=== PATIENT | female | born 2005 | race Two or more races ===

== ENCOUNTER 2025-10-01 11:03 | Emergency (ER) | payer OTHER ==
[~2025-10-01] VITALS: Ht 160 cm; Wt 68.2 kg
--- NOTE | 2025-10-01 11:31 | ECG ---
[facility] Test Date: 2025-10-01 Test Time: 11:17:47 Pat Name: KATHRYN GLASER Department: [facility] ED Patient ID: [id number] Room: Gender: F Increment Manager: anna : 2005 Requested By: EMERGENCY EMERGENCY Order Number: [id number] Reading MD: Arturo Jade Measurements Intervals [place] Rate: 111 P: 72 VA: 138 QRS: 73 QRSD: 90 T: 59 QT: 323 QTc: 439 Interpretive Statements Sinus tachycardia Consider right atrial enlargement Baseline wander in lead(s) V1,V2,V3 Electronically Signed On 10-05-2025 8:35:40 PST by Arturo Jade Please click the below link to view image of tracing.
[2025-10-01 11:54] VITALS: PULSE 95; RESP 15; O2SAT 98
[2025-10-01 12:14] LABS: Hematocrit 39.1 % (36.0-46.0); Hemoglobin 13.1 g/dL (12.2-16.2); Mean Corpuscular Hemoglobin 28.8 pg (28.0-32.0); Mean Corpuscular Volume 86.1 fL (80.0-100.0); Nucleated Red Blood Cells % 0.0 %
[2025-10-01 12:17] LABS: Chloride 106 mmol/L (98-107); Potassium 4.1 mmol/L (3.5-5.1); Sodium 143 mmol/L (136-145)
[2025-10-01 12:19] LABS: Anion Gap 12 (5-15); Calcium 9.9 mg/dL (8.7-10.4); Carbon Dioxide 25 mmol/L (20-31)
--- NOTE | 2025-10-01 12:22 | ED.PDOC ---
History of Present Illness HPI Comments 19-year-old female presents to the ER with the chief complaint of back pain. Patient reports that she had a herniated and bulging disc and had spine injection procedure done to try to stop the pain at [place] on Thursday of 09/29/2025. Patient states on having had a sudden onset of mid back pain which radiated down the left leg causing numbness and tingling yesterday. Patient notes on calling [place] with her symptoms and was informed to go to the ER. The pain assumed this morning which prompted the patient to take Tylenol for the pain and to go to the ER. Denies any other symptoms at this time. Denies chills, fever, N/V/D, SOB, CP. No other associated symptoms, modifiers, recent injuries or sick contacts present at this time. Chief Complaint: Back Pain Time Seen by MD: 12:15 Reviewed Notes: Nurses Notes, Medications, Allergies Allergies: Coded Allergies: Latex (Verified Allergy, Unknown, 10/01/25) Information Source: Patient Mode of Arrival: Ambulatory Severity: Moderate Timing: Hours Duration: Since onset, Hours Prehospital treatment: None Past Medical History PAST MEDICAL HISTORY: Denies Surgical History (Other): Spine injection procedure done on 09/29/2025. HOME MAKER History: No Pertinent HOME MAKER History Family History Family History: Reviewed,noncontributory to illness, Unknown Social History Smoker: Non-Smoker Alcohol: Denies ETOH Use Drugs: Denies Drug Use Lives In: Home Constitutional: denies: chills, diaphoresis, fatigue, fever, malaise, sweats, weakness, others EENTM: denies: blurred vision, double vision, ear bleeding, ear discharge, ear drainage, ear pain, ear ringing, eye pain, eye redness, hearing loss, mouth pain, mouth swelling, nasal discharge, nose bleeding, nose congestion, nose pain, photophobia, tearing, throat pain, throat swelling, voice changes, others Respiratory: denies: cough, hemoptysis, orthopnea, SOB at rest, shortness of breath, SOB with excertion, stridor, wheezing, others Cardiovascular: denies: chest pain, dizzy spells, diaphoresis, Dyspnea on exertion, edema, irregular heart beat, left arm pain, lightheadedness, palpita tions, PND, syncope, others Gastrointestinal: denies: abdomen distended, abdominal pain, blood streaked roma wels, constipated, diarrhea, dysphagia, difficulty swallowing, hematemesis, melena, nausea, poor appetite, poor fluid intake, rectal bleeding, rectal pain, vomiting, others Genitourinary: denies: abnormal vagina bleeding, burning, dyspareunia, dysuria, flank pain, frequency, hematuria, incontinence, pain, , vagina discharge, urgency, others Neurological: denies: dizziness, fainting, headache, left sided numbness, left sided weakness, numbness, paresthesia, pre-existing deficit, right sided numbness, right sided weakness, seizure, speech problems, tingling, tremors, weakness, others Musculoskeletal: reports: back pain (Thoracic region of the back has pain which radiates down to the left lower extremity causing numbness and tingling.); denies: gout, joint pain, joint swelling, muscle pain, muscle stiffness, neck pain, others Integumetry: denies: bruises, change in color, change in hair/nails, dryness, laceration, lesions, lumps, rash, wounds, others Allergic/Immunocompromised: denies: Difficulty Healing, Frequent Infections, Hives, Itching, others Hematologic/Lymphatic: denies: anemia, blood clots, easy bleeding, easy bruising, swollen glands, others Endocrine: denies: excessive hunger, excessive sweating, excessive thirst, excessive urination, flushing, intolerance to cold, intolerance to heat, unexplained weight gain, unexplained weight loss, others Psychiatric: denies: anxiety, bipolar disorder, depression, hopeless, panic disorder, schizophrenia, sleepless, suicidal, others All Other Systems: Reviewed and Negative Physical Exam Exam Comments Thoracic back pain General Appearance: No Apparent Distress, Normal HEENT: Normal ENT Inspection, Pharynx Normal, TMs Normal Neck: Full Range of Motion, Non-Tender, Normal, Normal Inspection Respiratory: Chest Non-Tender, Lungs Clear, No Accessory Muscle Use, No Respiratory Distress, Normal Breath Sounds Cardiovascular: No Edema, No JVD, No Murmur, No Gallop, Normal Peripheral Pulses, Regular Rate/Rhythm Breast Exam: Deferred Gastrointestinal: No Organomegaly, Non Tender, No Pulsatile Mass, Normal Bowel Sounds, Soft Genitalia: Deferred Pelvic: Deferred Rectal: Deferred Extremities: No calf tenderness, Normal capillary refill, Normal inspection, Normal range of motion, Non-tender, No pedal edema Musculoskeletal : Apperance: Normal Neurologic: Alert, director of recruitment and admissions II-XII nml as Tested, No Motor Deficits, Normal Affect, Normal Mood, No Sensory Deficits Cerebellar Function: Normal Reflexes: Normal Skin: Dry, Normal Color, Warm Lymphatic: No Adenopathy Was a procedure done? Was a procedure done?: No EKG EKG : Pulse Rate (adult): 111 [place]: Normal Cardiac Rhythm: ST Block: None Hypertrophy: None ST: Normal Differential Dx Considerations may include: Spinal epidural abscess, lumbar puncture headache, paresthesia, cauda equina X-Ray, Labs, Meds, VS Vital Signs Date Time Temp Pulse Resp B/P (MAP) Pulse Ox O2 Delivery O2 Flow Rate FiO2 10/01/25 14:05 95 16 118/81 (93) 98 10/01/25 13:42 98.4 10/01/25 12:42 98.3 10/01/25 12:21 111 10/01/25 12:00 98 10/01/25 11:54 98.3 95 15 132/102 (112) 98 98.3 10/01/25 11:54 95 15 98 Room Air* 0 21 10/01/25 11:17 111 10/01/25 11:12 98.3 111 18 153/102 99 98.3 Lab Test 10/01/25 11:55 Range/Units White Blood Count 6.6 4.4-10.8 10^3/uL Red Blood Count 4.54 4.0-5.20 10^6/uL Hemoglobin 13.1 12.2-16.2 g/dL Hematocrit 39.1 36.0-46.0 % Mean Corpuscular Volume 86.1 80.0-100.0 fL Mean Corpuscular Hemoglobin 28.8 28.0-32.0 pg Mean Corpuscular Hemoglobin Concent 33.5 32.0-36.0 g/dL Red Cell Distribution Width 13.5 11.8-14.3 % Platelet Count 261 140-450 10^3/uL Mean Platelet Volume 8.7 6.9-10.8 fL Neutrophils (%) (Auto) 67.8 37.0-80.0 % Lymphocytes (%) (Auto) 24.9 10.0-50.0 % Monocytes (%) (Auto) 6.1 0.0-12.0 % Eosinophils (%) (Auto) 0.4 0.0-7.0 % Basophils (%) (Auto) 0.8 0.0-2.0 % Neutrophils # (Auto) 4.5 1.6-8.6 10 ^3/uL Lymphocytes # (Auto) 1.7 0.4-5.4 10 ^3/uL Monocytes # (Auto) 0.4 0-1.3 10 ^3/uL Eosinophils # (Auto) 0 0-0.8 10 ^3/uL Basophils # (Auto) 0.1 0-0.2 10 ^3/uL Nucleated Red Blood Cells 0.0 % Sodium Level 143 136-145 mmol/L Potassium Level 4.1 3.5-5.1 mmol/L Chloride Level 106 98-107 mmol/L Carbon Dioxide Level 25 20-31 mmol/L Anion Gap 12 5-15 Blood Urea Nitrogen 8 L 9-23 mg/dL Creatinine 0.69 0.550-1.02 mg/dL Glomerular Filtration Rate Calc 127 >90 mL/min BUN/Creatinine Ratio 11.6 10.0-20.0 Serum Glucose 85 74-106 mg/dL Calcium Level 9.9 8.7-10.4 mg/dL Current Medications Medications (Trade) Dose Ordered Sig/Rich Route Start Time Stop Time Status Last Admin Sodium Chloride 1,000 ml @ 1,000 mls/hr Q1H ONCE IV 10/01/25 11:45 10/01/25 12:44 DC 10/01/25 12:40 Metoclopramide HCl (Reglan Injection) 10 mg ONCE ONCE IV 10/01/25 11:45 10/01/25 11:46 DC 10/01/25 12:41 Acetaminophen (Tylenol Tablet) 650 mg ONCE ONCE PO 10/01/25 11:45 10/01/25 11:46 DC 10/01/25 12:42 Time of 1ST Reevaluation: 12:45 Reevaluation 1ST: Unchanged Patient Education/Counseling: Diagnosis, Treatment, Prognosis Family Education/Counseling: No Family Present SEPSIS Sepsis Screen Date sepsis recognized/suspect: Oct 01, 2025 Time Sepsis recognized/suspect: 1110 Recent Procedure: No On Antibiotic Therapy: No Respiratory Rate >20: No Heart Rate >90: Yes Temp<36 C (96.8 F) or >38.3 C: No SBP <90 or MAP <65 mmHG: No New Acute Mental Status Change: No Is the patient on CPAP, BIPAP,: No Physician Orders Urinalysis (10/01/25 11:40) Test, Urine (10/01/25 11:40) Vital Signs Date Time Temp Pulse Resp B/P (MAP) Pulse Ox O2 Delivery O2 Flow Rate FiO2 10/01/25 14:05 95 16 118/81 (93) 98 10/01/25 13:42 98.4 10/01/25 12:42 98.3 10/01/25 12:21 111 10/01/25 12:00 98 10/01/25 11:54 98.3 95 15 132/102 (112) 98 98.3 10/01/25 11:54 95 15 98 Room Air* 0 21 10/01/25 11:17 111 10/01/25 11:12 98.3 111 18 153/102 99 98.3 Laboratory Tests Test 10/01/25 11:55 White Blood Count 6.6 10^3/uL (4.4-10.8) Medications Medications Dose Ordered Sig/Rich Route Start Time Stop Time Status Last Admin Dose Admin Acetaminophen 650 mg ONCE ONCE PO 10/01/25 11:45 10/01/25 11:46 DC 10/01/25 12:42 Metoclopramide HCl 10 mg ONCE ONCE IV 10/01/25 11:45 10/01/25 11:46 DC 10/01/25 12:41 Sodium Chloride 1,000 ml @ 1,000 mls/hr Q1H ONCE IV 10/01/25 11:45 10/01/25 12:44 DC 10/01/25 12:40 Departure 1 Departure Time of Disposition: 14:29 ([place] authorization: [id number] medicinal plant picker for advanced imaging) Impression: Primary Impression: Left leg numbness Additional Impressions: Lower back pain Intractable migraine Disposition: 02 SHORT TERM HOSPITAL Condition: Serious Critical Care Note Critical Care Time?: No Stability Stability form required: No I personally scribed for YEYO DAO MD ([email or web address]) on 10/01/25 at 12:21. Electronically submitted by Bal Doran ([email or web address]). YEYO DAO MD Oct 01, 2025 12:21
[2025-10-01 12:24] LABS: BUN/Creatinine Ratio 11.6 (10.0-20.0); Glucose 85 mg/dL (74-106)
[2025-10-01 12:28] LABS: Blood Urea Nitrogen 8 mg/dL (9-23)
[2025-10-01] MEDS: SODIUM CHLORIDE 0.9% 1,000 ML IV ONE (12:40)
[2025-10-01] MEDS: METOCLOPRAMIDE HCL 5MG/ml INJ 2ml VIAL IV ONE (12:41)
[2025-10-01] MEDS: ACETAMINOPHEN 325 MG TAB PO ONE (12:42)
[2025-10-01] MEDS: KETAMINE 50mg/ML 10ml Vial (500mg/10ml) IV ONE (14:36)
[2025-10-01 15:25] VITALS: BP 141/89; PULSE 116; RESP 19; TEMP 98.1; O2SAT 100
== END 2025-10-01 15:40 | disposition short-term general hospital (02) ==
LOC: EEVIPCON 11:03 → ER 11:03
DX: M54.50 Low back pain, unspecified (principal); G43.919 Migraine, unspecified, intractable, without status migrainosus; R20.2 Paresthesia of skin; R20.0 Anesthesia of skin; Z91.040 Latex allergy status
CPT/HCPCS: 36415; 80048; 85025; 93005; 96361; 96374; 96375; 99285; J2765; J7030